=== PATIENT | female | born 1985 | race Caucasian/White ===

== ENCOUNTER → 2021-05-24 | Outpatient (CLI) | payer OTHER | END | disposition home or self-care (01) | LOC: LAB 14:32 → LAB SHORT 14:32 | DX: R35.0 Frequency of micturition (principal); R39.15 Urgency of urination | CPT/HCPCS: 87086 ==

== ENCOUNTER → 2021-07-23 | Outpatient (CLI) | payer OTHER | END | disposition home or self-care (01) | LOC: LAB 14:54 → LAB SHORT 14:54 | DX: R39.15 Urgency of urination (principal) | CPT/HCPCS: 87086 ==

== ENCOUNTER → 2023-07-18 | Outpatient (CLI) | payer BC | LOC: LAB SHORT 08:40 → LAB 08:40 | DX: R73.01 Impaired fasting glucose (principal) | CPT/HCPCS: 83036 ==

== ENCOUNTER → 2025-02-05 | Outpatient (CLI) | payer BC | LOC: LAB SHORT 08:51 → LAB 08:51 | DX: N39.0 Urinary tract infection, site not specified (principal) | CPT/HCPCS: 87086 ==